=== PATIENT | female | born 1940 | race Caucasian/White ===

== ENCOUNTER 2017-03-07 18:27 | Emergency (ER) | payer MEDICARE, OTHER ==
[2017-03-07 19:36] LABS: Hematocrit 32.3 % (37.0-47.0); Hemoglobin 10.6 gm/dL (12.5-16.0); Mean Cell Volume 87.8 fl (78-100); Mean Corpuscular Hemoglobin 28.8 pg (27-31); Mean Corpuscular Hgb Conc 32.8 g/dl (32-36); Neutrophil # 6.3 K/mm3 (1.3-6.0); Neutrophil % 62.2 % (42-75.0); Platelet Count 244 K/mm3 (150-450); Red Blood Count 3.68 M/mm3 (4.2-5.4); Red Cell Distribution Width 14.4 % (11.5-14.0); White Blood Count 10.2 K/mm3 (4.0-10.5)
[2017-03-07 19:49] LABS: Albumin * 3.5 gm/dl (3.4-5.0); Anion Gap 13.7 mmol/L (6.8-13.8); BUN/Creatinine Ratio 17.1 (9.0-21.6); Bilirubin, Total 0.6 mg/dL (0.0-1.1); Calcium * 8.9 mg/dL (7.9-10.9); Carbon Dioxide 27.7 mmol/L (24-32.6); Potassium 5.4 mmol/L (3.4-4.6); Total Protein 7.9 gm/dL (6.2-8.2)
[2017-03-07 19:58] LABS: Urine Bilirubin Negative (NEGATIVE); Urine Blood Negative /ul (NEGATIVE); Urine Ketone Negative (NEGATIVE); Urine Nitrite Negative (NEGATIVE); Urine Protein Negative (NEGATIVE); Urine Specific Gravity 1.015 SP.GR. (1.005-1.010); Urine Urobilinogen Normal (NORMAL)
[2017-03-07 20:15] LABS: Urine Appearance Clear; Urine Bacteria 1+; Urine Color Yellow; Urine RBC None Seen /hpf (0-5); Urine WBC 0-5 /hpf (0-5)
--- NOTE | 2017-03-07 20:37 | ERNOTE ---
Medical Problem HPI - Narrative Date of Service: 03/07/17 - General Chief Complaint: General Assessment Time Seen by Provider: 03/07/17 19:04 Source: patient, family, RN notes reviewed, old records Exam Limitations: no limitations - Immun/Allergies/Home Medications Immunizations: IMMUNIZATION HX Immunizations Up to Date Yes History of Influenza Vaccine Yes Hx Pneumococcal Vaccination Yes Allergies/Adverse Reactions: Allergies lorazepam [From Ativan] Allergy (Mild, Verified 03/07/17 18:46) per the PCP office Home Medications: HOME MEDICATIONS Omeprazole 40 mg PO BID 04/16/12 [Last Taken 01/14/13] Simvastatin [Zocor] 40 mg PO HS 04/16/12 [Last Taken 01/14/13] Escitalopram Oxalate [Lexapro] 20 mg PO HS 05/05/12 [Last Taken 01/14/13] Acetaminophen [Tylenol] 1,000 mg PO Q6H PRN #0 tablet 01/14/13 [Last Taken 01/14] Carbidopa/Levodopa [Carbidopa-Levo 25-100 mg Odt] 1.5 tab PO TID 05/07/15 [Last Taken Unknown] Pramipexole Di-HCl [Mirapex] 0.125 mg PO HS 05/07/15 [Last Taken Unknown] Lisinopril [Zestril] 10 mg PO DAILY #30 tablet 05/08/15 [Last Taken Unknown] clonazePAM [Klonopin] 0.5 mg PO BID #60 tab 08/03/15 [Last Taken Unknown] Ciprofloxacin HCl [Cipro] 500 mg PO BID #14 tablet 03/07/17 [Last Taken Unknown] - History of Present History Narrative: 76 year old female brought to the ED from home by her daughter for generally not feeling well. Her only acute complaint is that she has vomited 3 times today , but she has otherwise not been feeling well for months. She complains mostly of fatigue and dizziness. She also reports chronic constipation. She did have a small stool today. She has had a couple of falls recently and it sounds as though her condition has just been generally declining. Review of Systems - Review of Systems Constitutional: Present: chills, fatigue, malaise, decreased activity level. Absent: fever EYE: Present: no symptoms reported ENT: Absent: nose congestion, sore throat Respiratory: Present: cough. Absent: shortness of breath, wheezing Cardiology: Absent: chest pain, palpitations, edema Gastrointestinal/Abdominal: Present: nausea, vomiting, constipation. Absent: diarrhea, abdominal pain Genitourinary: Absent: frequency, dysuria, hematuria Musculoskeletal: Present: back pain. Absent: neck pain Skin: Absent: rash, lesions Neurological: Present: dizziness/light-headedness, tremors. Absent: headache, weakness, numbness, tingling Endocrine: Present: no symptoms reported Hematologic/Lymphatic: Present: no symptoms reported Psych: Present: no symptoms reported - Patient's Past Medical History Patient History - Medical: Anemia, Anxiety, Arthritis, Depression, GERD, UTI'S, Other - Spinal stenosis Patient History - Cardiac/Respiratory: Hypertension, Hyperlipidemia Patient History - Cancer: No Hx of Cancer Patient History - Surgical Procedures: Colonoscopy, EGD, Other, Orthopedic Patient History - Other: None LMP (females 10-50): Menopausal - Family History Mother Family History - Medical: Father Family History - Medical: Family History - Cardiac/Respiratory: No pertinent hx, Atrial Fibrillation - Social History Living Situations: home - with daughter Abuse History: No History of abuse Psych History: Hx of Anxiety, Hx of Depression, Current tx/ever been on anti- depressants or anti-anxiety meds Smoking Status: Never smoker Alcohol Use: none Drug Use: none - Immunizations Immunizations Up to Date: Yes Hx Pneumococcal Vaccination: Yes History of Influenza Vaccine: Yes Physical Exam - Physical Exam General Appearance: Present: wd/wn, alert, no apparent distress Head Exam: Present: normal inspection Ears, Nose, Throat: Present: normal ENT inspection, normal pharynx Neck: Present: normal inspection, nontender, supple Respiratory: Present: no respiratory distress, normal breath sounds, no accessory muscle use, lungs clear Cardiovascular/Chest: Present: regular rate, rhythm, no murmur, normal peripheral pulses Gastrointestinal/Abdominal: Present: nontender, nondistended, soft Extremity Exam: Present: normal inspection, non-tender, no edema Neurological Exam: Present: alert, oriented, no motor/sensory deficits, other - Flat affect. Absent: normal mood/affect Skin Exam: Present: warm/dry, pallor ED Progress - Results and Orders Patient's Lab Results:: I have reviewed the patient's lab results. - Vital Signs Patient's Vital Signs:: I have reviewed the patient's vital signs. Vital Signs: Vital Signs 03/07/17 03/07/17 18:34 19:05 Temperature 36.6 C Pulse Rate 79 79 Respiratory 16 16 Rate Blood Pressure 144/80 144/80 O2 Sat by Pulse 97 97 Oximetry - EKG EKG: NSR EKG read: Reviewed by me - X-Ray X-Ray #1 X-Ray: chest Interpretation: Interp. by me X-ray Comments: No acute cardiopulmonary process identified - Progress/Reassessment Chief Complaint: General Assessment Progress:: Unchanged Plan - Plan Plan: Renal function has declined from her baseline, may be d/t her vomiting today. She is tolerating liquids orally in the department. Discussed giving IVF here but patient does not want to stay here long enough for that. Rocephin given for UTI. Patient and daughter agreeable to f/u next week with PCP for recheck, or returning if symptoms worsen. Departure Clinical Impression: Urinary tract infection Qualifiers: Urinary tract infection type: acute cystitis Hematuria presence: without hematuria Qualified Code(s): N30.00 - Acute cystitis without hematuria - Departure Disposition: Home Follow Up Needed Condition: Stable Instructions: Urinary Tract Infection, Adult, [id number] Additional Instructions: Restart Miralax - adjust dose as needed A fiber supplement might also be helpful Increase fluid intake Return for worsening symptoms, otherwise follow up with Dr. Palomares to recheck labs next week Referrals: Stephen Palomares MD [Staff Physician] - Prescriptions: Ciprofloxacin HCl [Cipro] 500 mg PO BID #14 tablet
[2017-03-07 20:58] VITALS: BP 167/71
== END 2017-03-07 20:57 | disposition home or self-care (01) ==
LOC: ER 18:27
DX: Z87.440 Personal history of urinary (tract) infections; N30.00 Acute cystitis without hematuria

== ENCOUNTER 2017-03-17 18:49 | Emergency (ER) | payer MEDICARE, OTHER ==
[2017-03-17 19:46] LABS: Hematocrit 34.2 % (37.0-47.0); Hemoglobin 11.4 gm/dL (12.5-16.0); Mean Cell Volume 85.5 fl (78-100); Mean Corpuscular Hemoglobin 28.5 pg (27-31); Mean Corpuscular Hgb Conc 33.3 g/dl (32-36); Mean Platelet Volume 9.9 fl (6.0-9.5); Neutrophil # 6.8 K/mm3 (1.3-6.0); Neutrophil % 66.2 % (42-75.0); Platelet Count 225 K/mm3 (150-450); Red Cell Distribution Width 14.4 % (11.5-14.0); White Blood Count 10.2 K/mm3 (4.0-10.5)
[2017-03-17 20:06] LABS: ALT 19 U/L (19-67); AST 74 U/L (0-48); Albumin * 3.5 gm/dl (3.4-5.0); Alkaline Phosphatase * 452 U/L (50-170); Anion Gap 12.4 mmol/L (6.8-13.8); BNP * 253 pg/mL (5-550); BUN/Creatinine Ratio 12.1 (9.0-21.6); Bilirubin, Total 0.7 mg/dL (0.0-1.1); Blood Urea Nitrogen 17 mg/dL (3-23); Ca. Corrected For Albumin 9.3 mg/dL (8.4-10.2); Calcium * 9.2 mg/dL (7.9-10.9); Carbon Dioxide 27.8 mmol/L (24-32.6); Chloride 95 mmol/L (97-106); Glucose * 196 mg/dL (70-110); Potassium 5.2 mmol/L (3.4-4.6); Sodium 130 mmol/L (132-142); Total Protein 8.1 gm/dL (6.2-8.2); Troponin I Less than 0.017 ng/ml (0.00-0.10)
[2017-03-17 20:17] LABS: Urine Bilirubin Negative (NEGATIVE); Urine Blood Negative /ul (NEGATIVE); Urine Ketone Negative (NEGATIVE); Urine Nitrite Negative (NEGATIVE); Urine Protein Negative (NEGATIVE); Urine Specific Gravity <=1.005 SP.GR. (1.005-1.010); Urine Urobilinogen Normal (NORMAL); Urine pH 6.5 pH (5.0-7.0)
[2017-03-17 20:26] LABS: Urine Appearance Clear; Urine Color Yellow
[2017-03-17 20:27] LABS: Urine Bacteria TRACE; Urine RBC None Seen /hpf (0-5); Urine WBC None Seen /hpf (0-5)
--- NOTE | 2017-03-17 20:52 | ERNOTE ---
Medical Problem HPI - Narrative Date of Service: 03/17/17 - General Chief Complaint: General Assessment Time Seen by Provider: 03/17/17 19:25 Source: patient, family, RN notes reviewed Exam Limitations: dementia - Immun/Allergies/Home Medications Immunizations: IMMUNIZATION HX Immunizations Up to Date Yes History of Influenza Vaccine Yes Hx Pneumococcal Vaccination Yes Allergies/Adverse Reactions: Allergies lorazepam [From Ativan] Allergy (Mild, Verified 03/17/17 19:02) per the PCP office Home Medications: HOME MEDICATIONS Omeprazole 40 mg PO BID 04/16/12 [Last Taken 01/14/13] Simvastatin [Zocor] 40 mg PO HS 04/16/12 [Last Taken 01/14/13] Escitalopram Oxalate [Lexapro] 20 mg PO HS 05/05/12 [Last Taken 01/14/13] Acetaminophen [Tylenol] 1,000 mg PO Q6H PRN #0 tablet 01/14/13 [Last Taken 01/14] Carbidopa/Levodopa [Carbidopa-Levo 25-100 mg Odt] 1.5 tab PO TID 05/07/15 [Last Taken Unknown] Pramipexole Di-HCl [Mirapex] 0.125 mg PO HS 05/07/15 [Last Taken Unknown] Lisinopril [Zestril] 10 mg PO DAILY #30 tablet 05/08/15 [Last Taken Unknown] clonazePAM [Klonopin] 0.5 mg PO BID #60 tab 08/03/15 [Last Taken Unknown] Aspirin [Aspirin Chewable] 81 mg PO DAILY 03/17/17 [Last Taken Unknown] Cholecalciferol (Vitamin D3) [Vitamin D] 400 unit PO DAILY 03/17/17 [Last Taken Unknown] Cholecalciferol (Vitamin D3) [Vitamin D] 400 unit PO DAILY 03/17/17 [Last Taken Unknown] Losartan Potassium [Cozaar] 25 mg PO DAILY 03/17/17 [Last Taken Unknown] Melatonin/Pyridoxine HCl (B6) [Melatonin 3 mg Tablet] 1 each PO DAILY 03/17/17 [ Last Taken Unknown] Sucralfate [Carafate] 1 gm PO QID 03/17/17 [Last Taken Unknown] - History of Present History Narrative: 76 year old female brought to the ED from home by ambulance for dizziness. She started taking carafate today for what may be a gastric ulcer and is concerned that she is having a medication reaction. I saw her 10 days ago. She had numerous vague complaints at that time, including dizziness. She saw her PCP yesterday for follow up. She was diagnosed with DM type II and prescribed glimiperide but does not start it until tomorrow. She also reports having black stools, but has apparently been taking Pepto Bismol. Review of Systems - Review of Systems Constitutional: Present: fatigue, malaise, decreased activity level. Absent: recent illness, fever, chills EYE: Absent: eye pain, blurred vision ENT: Present: no symptoms reported Respiratory: Present: shortness of breath. Absent: cough, orthopnea, wheezing Cardiology: Absent: chest pain, palpitations, syncope, edema Gastrointestinal/Abdominal: Absent: nausea, vomiting, diarrhea, constipation Genitourinary: Absent: dysuria, hematuria Musculoskeletal: Present: no symptoms reported Skin: Absent: rash, lesions Neurological: Present: dizziness/light-headedness. Absent: headache, numbness, tingling Endocrine: Present: no symptoms reported Hematologic/Lymphatic: Present: no symptoms reported Psych: Present: anxiety, depressed - Patient's Past Medical History Patient History - Medical: Anemia, Anxiety, Arthritis, Depression, GERD, UTI'S, Other Patient History - Cardiac/Respiratory: Hypertension, Hyperlipidemia Patient History - Cancer: No Hx of Cancer Patient History - Surgical Procedures: Colonoscopy, EGD, Other, Orthopedic Patient History - Other: None LMP (females 10-50): Menopausal - Family History Mother Family History - Medical: Father Family History - Medical: Family History - Cardiac/Respiratory: No pertinent hx, Atrial Fibrillation - Social History Living Situations: home - with daughter Abuse History: No History of abuse Psych History: Hx of Anxiety, Hx of Depression, Current tx/ever been on anti- depressants or anti-anxiety meds Smoking Status: Never smoker Have you smoked in the past 12 months: No Do you dip or chew tobacco: No Alcohol Use: none Drug Use: none - Immunizations Immunizations Up to Date: Yes Hx Pneumococcal Vaccination: Yes History of Influenza Vaccine: Yes Physical Exam - Physical Exam General Appearance: Present: alert, no apparent distress, obese Head Exam: Present: normal inspection Eye Exam: Normal inspection: bilateral, PERRL: bilateral, EOMI: bilateral Neck: Present: normal inspection, nontender, supple Respiratory: Present: no respiratory distress, normal breath sounds, no accessory muscle use, lungs clear Cardiovascular/Chest: Present: regular rate, rhythm, no murmur, normal peripheral pulses Gastrointestinal/Abdominal: Present: normal bowel sounds, nontender, nondistended, soft Rectal Exam: Present: nontender, normal rectal tone, heme negative stool Extremity Exam: Present: non-tender, normal range of motion, pedal edema - mild Neurological Exam: Present: alert, oriented, no motor/sensory deficits, other - depressed appearing. Absent: normal mood/affect Skin Exam: Present: normal color, warm/dry ED Progress - Results and Orders Patient's Lab Results:: I have reviewed the patient's lab results. - Vital Signs Patient's Vital Signs:: I have reviewed the patient's vital signs. Vital Signs: Vital Signs 03/17/17 03/17/17 03/17/17 18:55 19:17 19:47 Temperature 37.0 C Pulse Rate 77 76 73 Respiratory 20 18 16 Rate Blood Pressure 183/80 171/77 167/75 O2 Sat by Pulse 96 96 96 Oximetry 03/17/17 03/17/17 20:15 20:44 Temperature Pulse Rate 73 73 Respiratory 16 16 Rate Blood Pressure 177/81 165/57 O2 Sat by Pulse 96 94 Oximetry - EKG EKG: NSR, unchanged from - 03/07/17 - CT/Ultrasound CT/Ultrasound Narrative: Noncontrast head CT shows atrophy but is otherwise negative per [facility] preliminary report - Progress/Reassessment Chief Complaint: General Assessment Progress:: Unchanged - Plan - Plan Plan: Labs and head CT are without acute findings. The patient continues to have numerous vague complaints, much the same as when I saw her 10 days ago. Her new diagnosis of diabetes may be responsible for at least some of her symptoms. Reassured that she should start feeling better once her blood sugar is under better control. Patient's daughter (caregiver) in agreement. The patient seems disappointed - she was hoping to be admitted to the hospital. Departure Clinical Impression: Dizziness, Anxiety - Departure Disposition: Home Follow Up Needed Condition: Stable Instructions: Type 2 Diabetes Mellitus, Adult, [id number] Referrals: Stephen Palomares MD [Primary Care Provider] -
[2017-03-17 21:11] VITALS: BP 170/77
== END 2017-03-17 21:10 | disposition home or self-care (01) ==
LOC: ER 18:49
DX: R42 Dizziness and giddiness (principal); F41.9 Anxiety disorder, unspecified; Z87.440 Personal history of urinary (tract) infections; I10 Essential (primary) hypertension; E78.5 Hyperlipidemia, unspecified; F32.9 Major depressive disorder, single episode, unspecified; K21.9 Gastro-esophageal reflux disease without esophagitis; R53.83 Other fatigue